=== PATIENT | male | born 1995 | race African-American/Black ===

== ENCOUNTER 2018-02-21 22:49 | Emergency (ER) | payer OTHER ==
[~2018-02-21] VITALS: Ht 167.6 cm; Wt 51.3 kg
[2018-02-22 04:26] VITALS: BP 164/87
== END 2018-02-22 04:26 ==
LOC: EME 22:49
DX: S06.0X0A Concussion without loss of consciousness, initial encounter (principal); S00.81XA Abrasion of other part of head, initial encounter; W20.8XXA Other cause of strike by thrown, projected or falling object, initial encounter; Y93.B9 Activity, other involving muscle strengthening exercises
CPT/HCPCS: 70450; 99281; 99283